=== PATIENT | male | born 1945 | race Caucasian/White ===

== ENCOUNTER → 2019-02-12 | Outpatient (CLI) | payer OTHER ==
--- NOTE | 2019-02-12 11:07 | 2DMMODE ---
[facility] [place] [address] 2 D/M-MODE ECHOCARDIOGRAM Name: PAULINA LINARES Room #: REG CL [facility]#: [id number] ������������� Admission: 02/12/19 ������������� Attend Phys: Koffi Epps MD Discharge: ��� ������������� ��� Date of : 49 Date of Service: 02/12/19 1107 �� Report #: [id number] �������� ��������������������������������������������[id number] THIS REPORT FOR: //name// APPROVED REPORT Study performed: 02/12/2019 10:18:03 EXAM: Comprehensive 2D, Doppler, and color-flow Echocardiogram Patient Location: Out-Patient Status: routine BSA: 2.14 HR: 62 bpm BP: 150/116 mmHg Other Information Study Quality: Good Indications SVT 2D Dimensions RVDd: 39.47 mm IVSd: 11.84 (7-11mm) LVOT Diam: 19.69 (18-24mm) LVDd: 44.08 mm PWd: 10.72 (7-11mm) Ascending Ao: 35.01 (22-36mm) LVDs: 35.31 (25-40mm) Aortic Root: 32.11 mm Volumes Left Atrial Volume (Systole) Single Plane 4CH: 54.59 mL Single Plane 2CH: 65.99 mL LA ESV Index: 31.00 mL/m2 Aortic Valve AoV Peak Mingo.: 1.28 m/s AO Peak Gr.: 6.55 mmHg LVOT Max P.06 mmHg LVOT Max V: 0.88 m/s VELVET Vmax: 2.08 cm2 Mitral Valve E/A Ratio: 0.9 MV Decel. Time: 218.65 ms MV E Max Mingo.: 0.76 m/s MV A Mingo.: 0.80 m/s [facility] [place] [address] 2 D/M-MODE ECHOCARDIOGRAM Name: PAULINA LINARES Room #: REG [facility]#: [id number] ������������� Admission: 02/12/19 ������������� Attend Phys: Koffi Epps MD Discharge: ��� ������������� ��� Date of : 49 Date of Service: 02/12/19 1107 �� Report #: [id number] �������� ��������������������������������������������[id number] MV PHT: 63.41 ms IVRT: 69.20 ms Pulmonary Valve PV Peak Mingo.: 1.41 m/s PV Peak Gr.: 7.96 mmHg Pulmonary Vein P Vein S: 0.70 m/s P Vein A: 0.32 m/s P Vein D: 0.53 m/s P Vein A Dur.: 87.7 msec P Vein S/D Ratio: 1.32 Tricuspid Valve TR Peak Mingo.: 2.73 m/s RAP Estimate: 5.00 mmHg TR Peak Gr.: 29.81 mmHg PA Pressure: 34.00 mmHg Left Ventricle The left ventricle is normal size. There is normal left ventricular wall thickness. The left ventricular systolic function is normal. The left ventricular ejection fraction is within the normal range. LVEF is 50-55%. Moderate diastolic dysfunction is present (pseudonormal filling). Right Ventricle The right ventricle is normal size. The right ventricular systolic function is normal. Pacemaker lead is present in the right ventricle. Atria The left atrium size is normal. The right atrium size is normal. Pacemaker lead is present in the right atrium. Aortic Valve The aortic valve is normal in structure. No aortic regurgitation is present. There is no aortic valvular stenosis. Mitral Valve The mitral valve is normal in structure. Mild mitral regurgitation. No evidence of mitral valve stenosis. Tricuspid Valve The tricuspid valve is normal in structure. Mild tricuspid regurgitation. Estimated PAP is 34mmHg. Pulmonic Valve Pulmonic valve is not well visualized. Trace pulmonic regurgitation. [address] [address] 2 D/M-MODE ECHOCARDIOGRAM Name: PAULINA LINARES [place] Room #: REG CL [facility]#: [id number] ������������� Admission: 02/12/19 ������������� Attend Phys: Koffi Epps MD Discharge: ��� ������������� ��� Date of : 49 Date of Service: 02/12/19 1107 �� Report #: [id number] �������� ��������������������������������������������[id number] Great Vessels The aortic root is normal in size. IVC is normal in size and collapses >50% with inspiration. Pericardium There is no pericardial effusion. <Conclusion> The left ventricle is normal size. There is normal left ventricular wall thickness. The left ventricular systolic function is normal. Moderate diastolic dysfunction is present (pseudonormal filling). The right ventricle is normal size. Pacemaker lead is present in the right ventricle. The left atrium size is normal. The right atrium size is normal. Pacemaker lead is present in the right atrium. The aortic valve is normal in structure. Mild mitral regurgitation. Mild tricuspid regurgitation. Estimated PAP is 34mmHg. ��������������������������������������������� <ELECTRONICALLY SIGNED> ���������������������������������������� By: Jesús Rinaldi MD ��������������������������������������������� 02/12/19 1107 1107 110 Jesús Rinaldi MD /INF
--- NOTE | 2019-02-13 07:59 | EKG ---
[address] [place] [address] ELECTROCARDIOGRAM REPORT Name: PAULINA LINARES [id number] ������������������ Admission: 02/12/19 ������������������ Attend Phys: Koffi Epps MD Discharge: ������������������ Date of : 49 Report #: [id number] ����������������������������������������������������������������� [id number] THIS REPORT FOR: //name// [facility] Test Date: 2019-02-12 Test Time: 10:12:50 Pat Name: PAULINA LINARES Department: Room: Gender: Magnetic Resonance Technologist: Monty PADRON : 1945 Requested By: Koffi Epps Order Number: [id number] MD: Cristiano Holloway Measurements Intervals [place] Rate: 69 P: 40 CT: 180 QRS: 26 QRSD: 98 T: 24 QT: 424 QTc: 455 Interpretive Statements Sinus rhythm Abnormal R-wave progression, early transition No previous ECG available for comparison Electronically Signed On 02-13-2019 7:59:02 CDT by Cristiano Holloway [email or web address] ��������������������������������������������� <ELECTRONICALLY SIGNED> ���������������������������������������� By: Cristiano Holloway MD, [facility] ��������������������������������������������� 02/13/19 0759 1012 1012 Cristiano Holloway MD, FACC /EPI
== END ==
LOC: CV 09:42
DX: I08.1 Rheumatic disorders of both mitral and tricuspid valves (principal)